=== PATIENT | female | born 1950 | race Caucasian/White ===

== ENCOUNTER 2017-12-27 09:50 | Day surgery (SDC) | payer OTHER ==
[2017-12-27] MEDS ORDERED: NA CHLORIDE 0.9% 500 ML ONE (10:21)
[2017-12-27] MEDS ORDERED: NS 0.9% VIAL 10 ML ONE (10:38)
[2017-12-27] MEDS ORDERED: EPINEPHRINE/PF 1 MG/ML AMP ONE (10:39)
[2017-12-27] MEDS ORDERED: BALANCED SALT IRRIG PLAIN 500 ML BTL IRR ONE (10:39)
[2017-12-27] MEDS ORDERED: LIDOCAINE 2% MPF 5 ML VIAL ONE ×2 (10:39→10:56)
[2017-12-27] MEDS ORDERED: DUOVISC 1 KIT OPTH ONE (10:39)
[2017-12-27] MEDS ORDERED: MOXIFLOXACIN HCL 10 DROPS/ML **OR USE OPTH ONE (10:39)
[2017-12-27] MEDS ORDERED: TETRACAINE HCL 0.5% 2ML OPTH ONE (10:40)
[2017-12-27] MEDS ORDERED: BUPIVACAINE 0.5% PF 10 ML VIAL ONE (10:45)
[2017-12-27] MEDS: CYCLOPENTOLATE 1% OPTH 2 ML ONE ×3 (10:47→10:57)
[2017-12-27] MEDS: PHENYLEPHRINE 10% OPTH 5ML ONE ×3 (10:47→10:57)
[2017-12-27] MEDS ORDERED: PROPOFOL 200 MG/20 ML VIAL IV ONE (10:56)
--- NOTE | 2017-12-27 12:05 | P.BOP ---
Preoperative diagnosis: Nuclear sclerotic and cortical cataract OD Postoperative diagnosis: Same Primary procedure: Phacoemulsification with IOL OD Estimated blood loss: None Anesthesia: Local (Subtenon's infusion with anesthesia for cataract surgery) Complications: None Implants: ZCB00 +21.0 Transferred to: Other (Day surgery) Condition: Good
--- NOTE | 2017-12-27 23:07 | OP ---
Date of Procedure: 12/27/2017 Surgeon: Sonya Wolf MD Anesthesiologist: 1. Cynthia Whiteside CRNA. 2. Rafael Suarez M.D. Preoperative Diagnosis: Nuclear sclerotic and cortical cataract, right eye. Operation Performed: Phacoemulsification with intraocular lens implant, right eye. Anesthesia: Per cataract surgery. Complications: None. Description Of Procedure: In day surgery, the patient was prepped with Betadine and draped. A conju nctival incision was made in the inferior nasal quadrant with Trini scissors. A sub-Tenon block c onsisting of a 1:1 mixture of 2% Xylocaine and 0.25% bupivacaine was placed through the conjunctival incision with a blunt cannula. A Honan balloon was placed over the eye and the patient was transferr ed to the operating room. In the operating room the patient was prepped and draped in the usual sterile fashion for ophthalmic surgery. A lid speculum was placed in the right eye. Two paracentesis sites were made superiorly an d inferiorly in the limbal cornea. Viscoat was placed in the anterior chamber and a crescent blade w as used to make a corneal groove and tunnel, and a keratome was used to enter the anterior chamber. Provisc was placed in the anterior chamber and a 360 degree capsulotomy was performed with a cystitom e. The lens was hydrodissected with BSS and rotated freely. The lens was removed with a stop and ch op technique. 11.96 phaco CDE was used to remove the lens. Residual cortex was removed with the irr igation and aspiration. Provisc was placed in the capsular bag. A ZCB00 +21.0 diopter lens was plac ed in the capsular bag without complications. Irrigation and aspiration was used to remove residual viscoelastic. The paracentesis sites were hydrated with BSS. The wound and paracentesis sites were inspected and found to be watertight. Vigamox 0.07 cc was placed intracamerally at the end of the pr ocedure. The eye was irrigated with balanced salt solution. The eye was patched with a soft cotton patch and Morales metal shield. The patient was returned to day surgery in good condition. Comments: Discharge Instructions: Ms. Holcomb is discharged to home in good condition and is to follow with Dr. Wolf in the morning. RAFIQ/PHYLLIS Voice ID: [id number] Report ID: [id number]
== END 2017-12-27 12:35 | disposition home or self-care (01) ==
LOC: OR 09:50
PROVIDERS: ATTEND Ophthalmology Retina Specialist
PROC: 08RJ3JZ Replacement of Right Lens with Synthetic Substitute, Percutaneous Approach (ICD-10-PCS; principal; 2017-12-27 10:30)
DX: H25.11 Age-related nuclear cataract, right eye (principal); H25.011 Cortical age-related cataract, right eye; I10 Essential (primary) hypertension; I25.10 Atherosclerotic heart disease of native coronary artery without angina pectoris; K21.9 Gastro-esophageal reflux disease without esophagitis; E78.00 Pure hypercholesterolemia, unspecified; I25.2 Old myocardial infarction; Z95.1 Presence of aortocoronary bypass graft; Z85.89 Personal history of malignant neoplasm of other organs and systems
CPT/HCPCS: 66984; J0171